=== PATIENT | male | born 1940 | race Caucasian/White ===

== ENCOUNTER → 2017-10-23 | Day surgery (SDC) | payer MEDICARE ==
[~2017-10-23] MED LIST: ALLOPURINOL100 MG PO; AMLODIPINE BESY10 MG PO; ATORVASTATIN CA10 MG PO; B COMPLEX WITH1 EAC1 PO; BELLADONNA/OPIUM 60 MG SUPP PR ONE; CEFTRIAXONE SOD 1 GM VIAL ONE; CO Q10100 MG PO; DEXAMETHASONE SOD PHOS INJ 4 MG/ML VIAL ONE; EPHEDRINE SULFATE INJ 50 MG/10 ML SYR ONE; FENOFIBRATE145 MG PO; FENTANYL CITRATE/PF 100MCG/2 ML INJ ONE; FUROSEMIDE40 MG PO; GEMFIBROZIL PO; GENTAMICIN 80MG/NS 100 ML 100 ML IV ONE; HUMALOG100 UNIT/1 SC; HUMULIN INJ; IOPAMIDOL 610MG/1ML 300 MG/ML VIAL IV ONE; LIDOCAINE HCL 2% LOCAL INJ 5 ML SDV VIAL INJ ONE; MIDAZOLAM HCL 2 MG/2 ML VIAL ONE; ONDANSETRON HCL INJ 2 MG/ML VIAL ONE; POTASSIUM CITR10 MEQ PO; PROPOFOL IV EMULSION 10 MG/ML 20 ML VIAL ONE; RAMIPRIL5 MG PO; SEVOFLURANE INHAL SOLN 250 ML PEN BTL ONE; VIT B12 PO; VIT D3 PO
[2017-10-23 08:43] LABS: BASOPHILS % 0.2 % (0.0-1.0); HEMATOCRIT 44.9 % (38.2-49.6); HEMOGLOBIN 15.5 g/dL (14.0-18.0); LYMPHOCYTES # (AUTO) 1.7 (1.0-3.2); LYMPHOCYTES % 21.5 % (18.0-39.1); MEAN CORPUSCULAR HEMOGLOBIN 31.3 pg (28-32); MEAN CORPUSCULAR HGB CONC 34.5 g/dL (31-35); MEAN CORPUSCULAR VOLUME 90.7 fL (81-99); MONOCYTES # (AUTO) 0.8 (0.2-0.8); MONOCYTES % 9.9 % (4.4-11.3); NEUTROPHILS # (AUTO) 5.5 (2.1-6.9); NEUTROPHILS % 67.8 % (38.7-80.0); PLATELET COUNT 128 x10e3/uL (140-360); RED BLOOD COUNT 4.95 x10e6/uL (4.3-5.7); RED CELL DISTRIBUTION WIDTH 14.9 % (11.7-14.4)
[2017-10-23 09:15] LABS: ALBUMIN 4.2 g/dL (3.5-5.0); ALBUMIN/GLOBULIN RATIO 1.3 (0.8-2.0); ANION GAP 14.5 mmol/L (8-16); CREATININE, SERUM 1.62 mg/dL (0.72-1.25); POTASSIUM 3.5 mmol/L (3.5-5.1)
--- NOTE | 2017-12-03 06:48 | Operative Report ---
DATE OF PROCEDURE: October 23, 2017 PREOPERATIVE DIAGNOSES 1. Left nephrolithiasis. 2. Left indwelling ureteral stent. POSTOPERATIVE DIAGNOSES 1. Left nephrolithiasis. 2. Left indwelling ureteral stent. OPERATIONS PERFORMED: Note, these are all staged procedures as part of multistage, multistep process of managing the patient's left nephrolithiasis. 1. Cystourethroscopy with complicated removal of left indwelling ureteral stent (separate procedure performed for the diagnosis of stent). 2. Left ureteroscopy with Holmium laser lithotripsy of upper and lower pole left renal stones (separate procedure performed for the diagnosis of stones). 3. Cystostomy with insertion of left indwelling ureteral stent (separate procedure performed to relieve the hydronephrosis). 4. Radiological services for supervision and interpretation of ureteroscopy. 5. Interpretation of retrograde ureteroscopy. 6. Supervision of fluoroscopy. No radiologist present. ANESTHESIA: General. COMPLICATIONS: None. CLINICAL SUMMARY: Kasi Conway is a 76-year-old man with extensive urolithiasis. He has undergone ESWL. Has a stent in place and has persistent stones. He is brought for the above procedures. He is aware of the risks of bleeding, infection, injury to adjacent structures, need for additional procedures, and he elected to proceed. OPERATIVE PROCEDURE IN DETAIL: Informed consent was verified. Kasi Conway was properly identified and taken to the operating room and placed on the cystoscopy table in the supine position. Anesthesia was uneventfully begun. The patient was then carefully and gently repositioned in the dorsal lithotomy position with all pressure points well-padded. His genitalia were prepared and draped in the usual sterile fashion. The 22.5-Khmer cystoscope sheath with the visual obturator in place was atraumatically inserted into the patient's urethra. It was guided down the unremarkable urethra through the prostate bed, which was significant for obstructive BPH and into the patient's bladder. We identified a stent emerging from the left ureteral orifice. A guidewire was then placed alongside the stent and guided to the level of the patient's kidney. The stent was then grasped, completely removed and discarded. A flexible ureteroscope was brought up over the guidewire and guided to the level of the patient's kidney. We identified a significant stone burden, both in the upper pole, as well as the lower pole of the kidney. We started performing Holmium laser lithotripsy, and there was no movement at all as far as fragmentation of the stones. We raised the energy level on the laser to the maximum of the 200 micron fiber can accommodate. Then we proceeded with treating all stone debris at a setting of 10 caballero. This resulted in rather excellent fragmentation of all stones that were visible. There was a significant collection of stones that now we have collected within the patient's kidney. The ureteroscope was withdrawn after leaving the guidewire. With cystoscopic fluoroscopic guidance, an indwelling ureteral stent was then placed. It was coiled in the patient's kidney, as well as the patient's bladder at the end of the case. Interpretation retrograde ureteropyelography. Contrast was instilled in a retrograde fashion via the ureteroscope. There was chronic appearing hydronephrosis and some caliceal blunting. The stent was in good position. It was coiled in the patient's kidney, as well as the patient's bladder and the end of the case. The patient's bladder was then drained. The cystoscope was withdrawn. A belladonna and opium suppository was placed revealing a 35 g prostate that is smooth, nonfluctuant and without any nodules. The patient was uneventfully reversed from anesthesia, and taken to the recovery room in stable condition. Explicit postoperative instructions were given. Will follow the patient up in the office. Job#: [id number] [place]
== END | disposition home or self-care (01) ==
LOC: OR 07:44
PROVIDERS: ATTEND Urology
DX: N20.0 Calculus of kidney (principal); Z46.6 Encounter for fitting and adjustment of urinary device; N40.1 Benign prostatic hyperplasia with lower urinary tract symptoms; N13.8 Other obstructive and reflux uropathy; N13.30 Unspecified hydronephrosis; I10 Essential (primary) hypertension; M10.9 Gout, unspecified; E11.9 Type 2 diabetes mellitus without complications
CPT/HCPCS: 36415; 52356; 74420; 80053; 82948; 84550; 85025; J0696; J1100; J1580; J2001; J2250; J2405; Q9967; C2625

== ENCOUNTER → 2018-01-15 | Day surgery (SDC) | payer MEDICARE ==
[2018-01-14 13:22] LABS: BASOPHILS % 0.1 % (0.0-1.0); HEMATOCRIT 42.4 % (38.2-49.6); HEMOGLOBIN 14.8 g/dL (14.0-18.0); LYMPHOCYTES # (AUTO) 1.6 (1.0-3.2); LYMPHOCYTES % 22.5 % (18.0-39.1); MEAN CORPUSCULAR HEMOGLOBIN 31.3 pg (28-32); MEAN CORPUSCULAR HGB CONC 34.9 g/dL (31-35); MEAN CORPUSCULAR VOLUME 89.6 fL (81-99); MONOCYTES # (AUTO) 0.6 (0.2-0.8); MONOCYTES % 8.5 % (4.4-11.3); NEUTROPHILS # (AUTO) 4.8 (2.1-6.9); NEUTROPHILS % 68.3 % (38.7-80.0); PLATELET COUNT 123 x10e3/uL (140-360); RED BLOOD COUNT 4.73 x10e6/uL (4.3-5.7); RED CELL DISTRIBUTION WIDTH 14.8 % (11.7-14.4)
[2018-01-14 13:34] LABS: ANION GAP 14.3 mmol/L (8-16); CALCIUM 9.6 mg/dL (8.4-10.2); CREATININE, SERUM 1.78 mg/dL (0.72-1.25); POTASSIUM 4.3 mmol/L (3.5-5.1)
[~2018-01-15] MED LIST changes: -DEXAMETHASONE SOD PHOS INJ 4 MG/ML VIAL ONE; -GENTAMICIN 80MG/NS 100 ML 100 ML IV ONE; +INSULIN NOVOLIN; +INSULIN REGULAR, HUMAN 100 UNIT/1 ML 3ML VIAL ONE; +IOPAMIDOL 300MG/ML 50ML INFUS..BTL IV ONE; -IOPAMIDOL 610MG/1ML 300 MG/ML VIAL IV ONE; +NOVOLIN N100 UNIT/1 SQ; +PHENYLEPHRINE HCL 1% 10 MG/ML VIAL ONE; +VITAMIN D1000 UNI1 PO
--- OUTSIDE RECORDS SUMMARY | 2018-01-15 08:36 | XMS REPORT | Clinical Summary ---
Author Author [facility] Address Unknown Phone Unavailable Care Team Providers Care Pipe Line Repairer Name Role Phone Emre Manzo MD PCP Allergies No Known Allergies Current Medications Prescription Sig. Disp. Refills Start End Date Status Date allopurinol (ZYLOPRIM) Take 100 mg by mouth 3 Active 100 MG tablet (three) times a day before meals. amLODIPine (NORVASC) 10 Take 10 mg by mouth Active mg tablet daily. atorvastatin (LIPITOR) 10 Take 10 mg by mouth Active MG tablet daily. fenofibrate (LOFIBRA) 160 Take 160 mg by mouth Active MG tablet daily. potassium chloride Take 20 mEq by mouth Active (KLOR-CON) 20 mEq packet daily. ramipril (ALTACE) 10 MG Take 10 mg by mouth Active capsule daily. furosemide (LASIX) 40 mg Take 40 mg by mouth 2 Active tablet (two) times a day. Active Problems No known active problems Family History Medical History Relation Name Comments Cancer Brother Diabetes Brother Diabetes Father Diabetes Sister Relation Name Status Comments Brother Father Sister Social History Tobacco Use Types Packs/Day Years Used Date Former Smoker Cigarettes Quit: 1959 Smokeless Tobacco: Former Quit: 1959 User Alcohol Use Drinks/Week oz/Week Comments No Sex Assigned at Date Recorded Not on file Last Filed Vital Signs Not on file Plan of Treatment Health Maintenance Due Date Last Done Comments ZOSTER VACCINE 1999 PNEUMOCOCCAL 2004 POLYSACCHARIDE VACCINE AGE 65 AND OVER PNEUMOCOCCAL-13 2004 INFLUENZA VACCINE 05/07/2018 Results Not on fileafter 01/14/2017 Insurance Payer Benefit Subscriber ID Type Phone Address Plan / Group [employer] C[employer] xxxxxxxxxxx PPO [employer] PPO [facility]
--- OUTSIDE RECORDS SUMMARY | 2018-01-15 08:36 | XMS REPORT ---
[facility] Address Unknown Phone Unavailable Care Team Providers Care Hospital Laboratory Technician Name Role Phone EL ERICKSON Unavailable Unavailable Problems This patient has no known problems. Allergies, Adverse Reactions, Alerts This patient has no known allergies or adverse reactions. Medications This patient has no known medications. Results Test Description Test Time Test Comments Text Results Atomic Results Result Comments ABDOMEN-1VIEW (KUB) [place] [address] Patient Name: BAUTISTA BOSE MR #: [id number] : 1940 Age/Sex: 76/M Req #: [id number] [facility] Physician: Ordered by: EL ERICKSON MD Report #: [id number] Location: OR Room/Bed: Procedure: [id number] DX/ABDOMEN-1VIEW (KUB) Exam Date: 08/28/17 Exam Time : 0810 REPORT STATUS: Signed PROCEDURE: X-RAY ABDOMEN - KUB COMPARISON: Abdominal radiograph 05/03/2017. INDICATIONS: PRE OPERATIVE CHEST X-RAY FOR STONES,ESWL FINDINGS: Account for differences in technique, no appreciable interval change in the appearance of a 3 cm partial staghorn calculus of the left upper pole collecting system , with adjacent 5-6 mm and 11 mm calculi inferolaterally. Peripherally calcified gallstone projects over the right upper quadrant, also unchanged. Multiple pelvic phleboliths. Unchanged appearance of left iliac arterial endograft with adjacent Amplatzer vascular occlusion device. Regional skeletal factors are intact. Multilevel degenerative disc changes. CONCLUSION: Stable left nephrolithiasis relative to 05/03/2017. Dictated by: Eileen Duong M.D. on 08/28/2017 at 8:51 Electronically approved by: Eileen Duong M.D. on 08/28/2017 at 8:51 Dictated By: EILEEN DUONG MD 0 Transcribed By: LUCIANO on 08/28/17850 COPY TO: EL ERICKSON MD CHEST 2 VIEWS [place] [address] Patient Name: BAUTISTA BOSE MR #: [id number] : 1940 Age/Sex: 76/M Req #: [id number] [facility] Physician: Ordered by: EL ERICKSON MD Report #: [id number] Location: OR Room/Bed: Procedure: [id number] DX/ CHEST 2 VIEWS Exam Date: 08/27/17 Exam Time: 1025 REPORT STATUS: Signed PROCEDURE: CHEST 2 VIEWS TECHNIQUE: PA lateral chest totaling 2 radiographs INDICATION: Preoperative evaluation. COMPARISON: None. FINDINGS: Right hemidiaphragm elevation. Lungs are otherwise clear. No pleural effusions. Normal heart size and mediastinal contour. Intact skeleton. Left humerus arthroplasty. CONCLUSION: No acute abnormality. Dictated by: Gemma Elliott M.D. on at 11:20 Electronically approved by: Gemma Elliott M.D. on 08/27/2017 at 11:20 Dictated By: GEMMA ELLIOTT MD 19 Transcribed By: LUCIANO on 08/27/171119 COPY TO: EL ERICKSON MD
--- OUTSIDE RECORDS SUMMARY | 2018-01-15 08:36 | XMS REPORT | Summary of Care ---
Author Author IRVING Desouza, TYREL Anaya Unknown Address Unknown Phone Unavailable Care Team Providers Care Mat Cutter Name Role Phone JOSE MAHARAJ M.D. Unavailable Unavailable GERSON COPELAND, GEMMA GUTIERREZ Unavailable Unavailable SIL COPELAND, MANUEL Unavailable Unavailable Unavailable Unavailable Functional Status Name Dates Details Functional status health issues are not documented Status: Name Dates Details Cognitive status health issues are not documented Status: Problems Name Dates Details History of endovascular stent graft for abdominal aortic aneurysm (V43.4, Z95.828) Status: Active Medications Name Dates Details Medications not documented Allergies and Adverse Reactions Name Dates Details Allergy history not documented Status: Procedures Procedure Dates Details Procedures not documented Immunization Name Dates Details Immunizations not documented Social History Name Dates Details - Status: Name Dates Details Former smoker Vital Signs Date Test Result Details No Known Vitals to report Results Date Description Value Details Results not documented Plan of Care Name Dates Details Planned Observations Planned Goals not documented Instructions Name Dates Details Instructions not documented Encounters Appointment; DR CAROL ANN ESPINOZA Encounter Diagnosis: Problem not documented On: 25-Dec-2017 6:00 Appointment; JOSE MAHARAJ M.D. Encounter Diagnosis: Problem not documented On: 30-Dec-2017 9:45
--- NOTE | 2018-01-15 11:10 | Diagnostic Imaging Report ---
PROCEDURE:X-RAY ABDOMEN - KUB COMPARISON:KUB 05/03/2017 INDICATIONS:PRE-OP LEFT LITHOTRIPSY FINDINGS: Left ureteral stent in place. The proximal tip overlying the renal silhouette is unlooped. Calcifications overlie the left renal silhouette measuring up to 1.4 cm on the inferior pole. A new calcification overlying the left pelvis adjacent to the ureteral stent measures 0.4 x 1 cm (TV x SI) just proximal to the distal loop. A round 6.7 cm opacity projects adjacent to the inferior pole of the right kidney. Stable 2.4 cm calcification overlying the right upper quadrant likely representing a gallstone. Vascular stent projects over the left pelvis. Stable phleboliths in the pelvis. There is a non-obstructed bowel-gas pattern. There are no acute osseous abnormalities. CONCLUSION: 1. Calcifications project over the left renal silhouette measuring up to 1.4 cm. 2. New 0.4 cm wide calcification projects near the expected left ureterovesicular junction. Ureteral stent in place. 3. A 6.7 cm rounded opacity projects adjacent to the inferior pole of the right renal silhouette which could represent a cyst but is indeterminate. This can further evaluation with renal ultrasound. Dictated by: Richard Plascencia M.D. on 01/15/2018 at 11:11 Electronically approved by: Richard Plascencia M.D. on 01/15/2018 at 11:11
--- NOTE | 2018-02-10 17:32 | Operative Report ---
DATE OF PROCEDURE: January 15, 2018 PREOPERATIVE DIAGNOSES: 1. Left nephrolithiasis. 2. Left ureterolithiasis. 3. Foreign body (left indwelling ureteral stent). 4. Left hydronephrosis. OPERATIONS PERFORMED: Note these were all staged procedures as part of a multistage, multistep process in managing the patient's urolithiasis. 1. Cystourethroscopy with complicated removal of left indwelling ureteral stent (separate procedure performed with separate scope for the diagnosis of the stent). 2. Left semirigid ureteroscopy with stone manipulation and extraction (separate procedure performed for the ureterolithiasis done with a semirigid ureteroscope). 3. Extensive repeated and complicated left ureteropyeloscopy with stone manipulation and extraction (separate complicated procedure performed multiple times for the numerous and innumerable stones located within the left kidney done with a separate flexible ureteroscope). 4. Radiological services for supervision and interpretation of ureteroscopy. 5. Interpretation of retrograde ureteropyelography. 6. Supervision of fluoroscopy, no radiologist present. 7. Cystourethroscopy with insertion of left indwelling ureteral stents (separate procedure performed to relieve hydronephrosis). ANESTHESIA: General. COMPLICATIONS: None. CLINICAL SUMMARY: Kasi Conway is a 77-year-old man with extensive and hard and large urolithiasis. The patient has undergone multiple bilateral procedures. He is brought to the operating room in attempts to render him stone-free. He is aware of the risks of bleeding, infection, injury to adjacent structures, need for additional procedures, and elected to proceed. OPERATIVE PROCEDURE IN DETAIL: Informed consent was verified. Kasi Conway was properly identified, taken to the operating room and placed on the cystoscopy table in supine position. Anesthesia was uneventfully begun. The patient was then carefully and gently repositioned in the dorsal lithotomy position with all pressure points well padded. His genitalia were prepared and draped in usual sterile fashion. The 22.5-Mosotho cystoscope sheath with the visual obturator in place was atraumatically inserted into patient's urethra. It was guided down the unremarkable distal urethra, through the normal sphincteric region, through the prostate bed, which was significant for visually obstructing BPH. We entered the patient's bladder where panendoscopy revealed no suspicious mucosal lesions, no tumors, no stones, and no diverticula. A stent was noted to be emerging from the left ureteral orifice and it was not encrusted. A guidewire was then placed alongside the stent and guided to level of the patient's kidney. The stent was then grasped, completely removed, and discarded. Semirigid ureteroscope was then placed alongside the stent and guided into the patient's left ureter. We identified multiple stones. Several passes were made with a nitinol tipless basket to extract all visible stones from within the distal ureter. Secondary guidewire was placed. A sheath was then placed over the secondary guidewire and guided to the level of the proximal ureter. Innumerable flexible ureteropyeloscopies were then performed flexible ureteroscope and we extracted numerous stone fragments during these procedures. No significantly sized stone fragments were left behind. The patient was then believed to be rendered essentially stone-free except for significant amount of sand, which should be easily passable. With cystoscopic and fluoroscopic guidance, a left-sided indwelling ureteral stent was then placed. It was coiled in patient's kidney as well as in patient's bladder. The retaining suture was cut short. Interpretation of retrograde ureteropyelography: Contrast was instilled in retrograde fashion bilaterally. There was chronic-appearing fullness of the left collecting system. Filling defects that were present initially were no longer distinguishable at the end of the ureteroscopy. The stent was in good position, coiled in patient's kidney as well as in patient's bladder at the end of the case. Plans will be to return the patient to the operating room to remove his stent, perform ureteroscopy, and hopefully render the patient stent-free and stone-free. Job#: [id number]
== END | disposition home or self-care (01) ==
LOC: OR 08:34
PROVIDERS: ATTEND Urology
DX: N20.0 Calculus of kidney (principal); N20.1 Calculus of ureter; Z46.6 Encounter for fitting and adjustment of urinary device; N13.30 Unspecified hydronephrosis; N40.1 Benign prostatic hyperplasia with lower urinary tract symptoms; N13.8 Other obstructive and reflux uropathy; I71.4 Abdominal aortic aneurysm, without rupture; E11.22 Type 2 diabetes mellitus with diabetic chronic kidney disease; I12.9 Hypertensive chronic kidney disease with stage 1 through stage 4 chronic kidney disease, or unspecified chronic kidney disease; N18.9 Chronic kidney disease, unspecified; Z01.810 Encounter for preprocedural cardiovascular examination; Z01.812 Encounter for preprocedural laboratory examination; Z79.4 Long term (current) use of insulin; Z84.1 Family history of disorders of kidney and ureter
CPT/HCPCS: 36415 ×2; 52330; 52332; 74018; 74420; 80048; 82948; 85025; 88300; 93005; C1766; C2617; J0696; J2001; J2250; J2370; J2405; Q9967

== ENCOUNTER → 2018-03-05 | Day surgery (SDC) | payer MEDICARE ==
[2018-03-04 09:40] LABS: BASOPHILS % 0.3 % (0.0-1.0); HEMATOCRIT 48.8 % (38.2-49.6); HEMOGLOBIN 16.9 g/dL (14.0-18.0); LYMPHOCYTES # (AUTO) 1.5 (1.0-3.2); LYMPHOCYTES % 11.9 % (18.0-39.1); MEAN CORPUSCULAR HEMOGLOBIN 30.8 pg (28-32); MEAN CORPUSCULAR HGB CONC 34.6 g/dL (31-35); MEAN CORPUSCULAR VOLUME 89.1 fL (81-99); MONOCYTES % 7.9 % (4.4-11.3); NEUTROPHILS # (AUTO) 9.7 (2.1-6.9); NEUTROPHILS % 79.1 % (38.7-80.0); PLATELET COUNT 132 x10e3/uL (140-360); RED BLOOD COUNT 5.48 x10e6/uL (4.3-5.7); RED CELL DISTRIBUTION WIDTH 14.5 % (11.7-14.4)
[2018-03-04 09:58] LABS: ANION GAP 14.6 mmol/L (8-16); CALCIUM 9.6 mg/dL (8.4-10.2); CREATININE, SERUM 1.84 mg/dL (0.72-1.25); POTASSIUM 4.6 mmol/L (3.5-5.1)
[~2018-03-05] MED LIST changes: +DEXAMETHASONE SOD PHOS INJ 4 MG/ML VIAL ONE; -EPHEDRINE SULFATE INJ 50 MG/10 ML SYR ONE; -INSULIN REGULAR, HUMAN 100 UNIT/1 ML 3ML VIAL ONE; -IOPAMIDOL 300MG/ML 50ML INFUS..BTL IV ONE; +IOPAMIDOL 610MG/1ML 300 MG/ML VIAL IV ONE; -MIDAZOLAM HCL 2 MG/2 ML VIAL ONE; +NOVOLOG MI100 UNIT/1 SC; -PHENYLEPHRINE HCL 1% 10 MG/ML VIAL ONE
--- OUTSIDE RECORDS SUMMARY | 2018-03-05 08:32 | XMS REPORT | Clinical Summary ---
Author Author [facility] Address Unknown Phone Unavailable Care Team Providers Care Assembler Installer General Name Role Phone Emre Manzo MD PCP Allergies Active Allergy Reactions Severity Noted Date Comments Chlorhexidine Gluconate 01/21/2018 Current Medications Prescription Sig. Disp. Refills Start End Date Status Date allopurinol (ZYLOPRIM) Take 100 mg by mouth 2 Active 100 MG tablet (two) times a day. amLODIPine (NORVASC) 10 Take 10 mg by mouth every Active mg tablet morning. ramipril (ALTACE) 10 MG Take 10 mg by mouth every Active capsule morning. furosemide (LASIX) 40 mg Take 40 mg by mouth 2 Active tablet (two) times a day. potassium citrate Take 15 mEq by mouth 2 Active (UROCIT-K) 15 mEq tablet (two) times a day with extended release meals. gemfibrozil (LOPID) 600 Take 600 mg by mouth 2 Active MG tablet (two) times a day before meals. ergocalciferol (VITAMIN Take 50,000 Units by Active D2) 50,000 unit capsule mouth once a week. insulin 70/30 NPH and Inject 44 Units under the Active regular human (HumuLIN skin 2 (two) times a day. 70/30) 100 unit/mL (70-30) injection atorvastatin (LIPITOR) 10 Take 10 mg by mouth 01/22/20 Discontin MG tablet daily. 18 ued fenofibrate (LOFIBRA) 160 Take 160 mg by mouth 01/22/20 Discontin MG tablet daily. 18 ued potassium chloride Take 20 mEq by mouth 01/22/20 Discontin (KLOR-CON) 20 mEq packet daily. 18 ued atorvastatin (LIPITOR) 10 Take 1 tablet (10 mg 30 tablet 0 01/25/20 02/24/20 MG tablet total) by mouth nightly 18 18 for 30 days. pantoprazole (PROTONIX) Take 1 tablet (40 mg 30 tablet 0 01/25/20 40 MG EC tablet total) by mouth daily for 18 18 30 days. Active Problems Problem Noted Date Small bowel obstruction 01/21/2018 Type 2 diabetes mellitus 01/21/2018 Hypertension 01/21/2018 Hypercholesteremia 01/21/2018 Chronic kidney disease 01/21/2018 Overview: stones COPD (chronic obstructive pulmonary disease) 01/21/2018 Encounters Date Type Specialty Care Team Description 01/24/2018 Procedure Pass General Surgery 01/23/2018 Anesthesia General Surgery Matt, Ricardo Event 01/21/2018 [facility] General Surgery Jason Reina DO Small bowel obstruction - Encounter Nick Fierro DO (Primary Dx) 01/24/2018 after 03/04/2017 Family History Medical History Relation Name Comments Cancer Brother Diabetes Brother Diabetes Father Diabetes Sister Relation Name Status Comments Brother Father Sister Social History Tobacco Use Types Packs/Day Years Used Date Former Smoker Cigarettes Quit: 1959 Smokeless Tobacco: Former Quit: 1959 User Alcohol Use Drinks/Week oz/Week Comments No Sex Assigned at Date Recorded Not on file Last Filed Vital Signs Vital Sign Reading Time Taken Blood Pressure 128/67 01/24/2018 11:32 AM CDT Pulse 69 01/24/2018 11:32 AM CDT Temperature 36.7 C (98 F) 01/24/2018 11:32 AM CDT Respiratory Rate 20 01/24/2018 11:32 AM CDT Oxygen Saturation 95% 01/24/2018 11:32 AM CDT Inhaled Oxygen - - Concentration Weight 95.3 kg (210 lb) 01/21/2018 1:33 PM CDT Height 170.2 cm (5' 7") 01/21/2018 1:33 PM CDT Body Mass Index 32.89 01/21/2018 1:33 PM CDT Plan of Treatment Health Maintenance Due Date Last Done Comments DIABETIC FOOT EXAM 1949 DIABETIC RETINAL EYE EXAM 1950 URINE MICROALBUMIN 1949 SHINGRIX VACCINE (#1) 1989 ZOSTER VACCINE 1999 PNEUMOCOCCAL 2004 POLYSACCHARIDE VACCINE AGE 65 AND OVER PNEUMOCOCCAL-13 2004 INFLUENZA VACCINE 05/07/2018 Results * POC glucose (01/24/2018 11:44 AM) Only the most recent of 13 results within the time period is included. Component Value Ref Range POC glucose 258 (H) 65 - 99 mg/dL Comment: Meter ID: [id number] Product Ambassador: Sherri Stefania Specimen Performing Laboratory [facility] DEPARTMENT OF PATHOLOGY AND GENOMIC MEDICINE [address] [place] [address] [place] [address] * Estimated GFR (01/24/2018 9:20 AM) Only the most recent of 3 results within the time period is included. Component Value Ref Range GFR Non Af Amer 53 (A) mL/min/1.73 m2 GFR Af Amer 65 mL/min/1.73 m2 Comment: Chronic kidney disease: <60 mL/min/1.73m2 Kidney failure: <15 mL/min/1.73m2 The estimated GFR is calculated from the IDMS-traceable Modification of Diet in Renal Disease Equation. The accuracy of the calculation is poor when the creatinine is normal. Calculated values >90 mL/min/1.73m2 are not reported. This equation has not been validated in children (<18 years), women, the elderly (>70 years), or ethnic groups other than Caucasians and Americans. Specimen Performing Laboratory Plasma specimen [facility] DEPARTMENT OF PATHOLOGY AND GENOMIC MEDICINE [address] [place] [address] [place] [address] * CBC with platelet and differential (01/24/2018 9:20 AM) Only the most recent of 3 results within the time period is included. Component Value Ref Range WBC 6.86 4.50 - 11.00 k/uL RBC 4.26 (L) 4.40 - 6.00 m/uL HGB 13.1 (L) 14.0 - 18.0 g/dL HCT 39.6 (L) 41.0 - 51.0 % MCV 93.0 82.0 - 100.0 fL MCH 30.8 27.0 - 34.0 pg MCHC 33.1 31.0 - 37.0 g/dL RDW - SD 53.8 37.0 - 55.0 fL MPV 10.8 8.8 - 13.2 fL Platelet count 128 (L) 150 - 400 k/uL Nucleated RBC 0.00 /100 WBC Neutrophils 81.5 (H) 39.0 - 69.0 % Lymphocytes 11.8 (L) 25.0 - 45.0 % Monocytes 6.0 0.0 - 10.0 % Eosinophils 0.0 0.0 - 5.0 % Basophils 0.3 0.0 - 1.0 % Specimen Performing Laboratory Blood [facility] DEPARTMENT OF PATHOLOGY AND [facility] [address] [place] [address] * Basic metabolic panel (01/24/2018 9:20 AM) Only the most recent of 3 results within the time period is included. Component Value Ref Range Sodium 140 135 - 148 mEq/L Potassium 4.0 3.5 - 5.0 mEq/L Chloride 97 (L) 98 - 112 mEq/L CO2 31 24 - 31 mEq/L Anion gap 12 7 - 15 mEq/L Comment: Starting from January , anion gap calculation no longer incorporates potassium. Please note the change. BUN 38 (H) 8 - 23 mg/dL Creatinine 1.3 (H) 0.7 - 1.2 mg/dL Glucose 290 (H) 65 - 99 mg/dL Calcium 8.7 (L) 8.8 - 10.2 mg/dL Specimen Performing Laboratory Plasma specimen [facility] DEPARTMENT OF PATHOLOGY AND [facility] [address] [place] [address] * XR Abdomen Acute Inc Chest (01/23/2018 9:01 AM) Specimen Performing Laboratory [address] [address] Narrative EXAMINATION:XR ABDOMEN ACUTE INC CHEST CLINICAL HISTORY:obstruction COMPARISON:None. FINDINGS: A nasogastric tube is present its tip projects in the distal stomach. The small bowel demonstrates persistent dilation although there is now opaque material present within the colon indicating the obstruction is not complete. There is atelectasis at the right lung base with elevation of the right hemidiaphragm noted as well. No extraluminal collections are noted. A left- sided double pigtail ureteral stent and vascular stent on the left also are noted and are stable since previous. IMPRESSION: 1. Opaque material is now present within the colon indicating that the small bowel obstruction is partial and not complete. 2. Nasogastric tube in place. 3. Moderate stool in the colon. 4. Atelectasis at the right lung base PA upright chest: The heart size is enlarged. A nasogastric tube is noted. Its tip projects in the stomach. There is chronic elevation of the right hemidiaphragm with atelectasis at the right lung base. IMPRESSION: 1. Cardiomegaly. 2. Atelectasis at the right lung base with elevation of the right hemidiaphragm [id number] Procedure Note Interface, Radiology Results Incoming - 01/23/2018 9:15 AM CDT EXAMINATION: XR ABDOMEN ACUTE INC CHEST CLINICAL HISTORY: obstruction COMPARISON: None. FINDINGS: A nasogastric tube is present its tip projects in the distal stomach. The small bowel demonstrates persistent dilation although there is now opaque material present within the colon indicating the obstruction is not complete. There is atelectasis at the right lung base with elevation of the right hemidiaphragm noted as well. No extraluminal collections are noted. A left- sided double pigtail ureteral stent and vascular stent on the left also are noted and are stable since previous. IMPRESSION: 1. Opaque material is now present within the colon indicating that the small bowel obstruction is partial and not complete. 2. Nasogastric tube in place. 3. Moderate stool in the colon. 4. Atelectasis at the right lung base PA upright chest: The heart size is enlarged. A nasogastric tube is noted. Its tip projects in the stomach. There is chronic elevation of the right hemidiaphragm with atelectasis at the right lung base. IMPRESSION: 1. Cardiomegaly. 2. Atelectasis at the right lung base with elevation of the right hemidiaphragm [id number] * XR Abdomen 1 Vw (01/22/2018 5:41 PM) Specimen Performing Laboratory [facility] [address] [place] [address] Narrative EXAMINATION:XR ABDOMEN 1 VW CLINICAL HISTORY:ABDOMINAL PAIN, f u sbo 10 hrs COMPARISON:None. FINDINGS: The earlier film demonstrates persistent distention of small bowel loops which are opacified. No contrast material is noted within the colon. A left ureteral stent is in place. A left-sided iliac stent is also in place. Nasogastric tube curls in the distal esophagus and is not currently within the stomach IMPRESSION: Changes consistent with at least partial mechanical small bowel structure in. Additional delayed films will be obtained. The nurse Ronna was notified as to the findings and recommendation to advance the tube into the stomach January 22, 2018 5:53 PM. She expressed understanding of the report [id number] Procedure Note Interface, Radiology Results Incoming - 01/22/2018 5:56 PM CDT EXAMINATION: XR ABDOMEN 1 VW CLINICAL HISTORY: ABDOMINAL PAIN, f u sbo 10 hrs COMPARISON: None. FINDINGS: The earlier film demonstrates persistent distention of small bowel loops which are opacified. No contrast material is noted within the colon. A left ureteral stent is in place. A left-sided iliac stent is also in place. Nasogastric tube curls in the distal esophagus and is not currently within the stomach IMPRESSION: Changes consistent with at least partial mechanical small bowel structure in. Additional delayed films will be obtained. The nurse Ronna was notified as to the findings and recommendation to advance the tube into the stomach January 22, 2018 5:53 PM. She expressed understanding of the report [id number] * FL Small Bowel Series (01/22/2018 4:48 PM) Specimen Performing Laboratory [address] [address] Narrative EXAMINATION:FL SMALL BOWEL CLINICAL HISTORY:Bowel obstruction COMPARISON:None. TECHNIQUE: SMALL BOWEL SERIES was performed with Gastrografin. FINDINGS: Antichecking Iron Worker view of the abdomen demonstrates considerable air distention of small bowel loops throughout the abdomen into the pelvis. Small amounts of air in scattered fecal material throughout the colon. Left-sided double-J ureteral stent in place. Aorto left iliac artery stent noted. NG tube at the level of the gastric cardia Gastrografin was placed through the patient's NG tube. Serial examination performed out to 6 hours. High-grade small bowel obstruction evident with contrast extending to the right lower pelvis. No contrast identified in to the colon. IMPRESSION: Changes of high-grade small bowel obstruction at 6 hours. Distention of small bowel into the right lower quadrant pelvis. No contrast in the colon. Findings were discussed with Jacob Teixeira at 01/22/2018 5:06 PM who verbalized understanding. Patient was to be placed back on NG suction. [id number] Procedure Note Interface, Radiology Results Incoming - 01/22/2018 5:13 PM CDT EXAMINATION: FL SMALL BOWEL CLINICAL HISTORY: Bowel obstruction COMPARISON: None. TECHNIQUE: SMALL BOWEL SERIES was performed with Gastrografin. FINDINGS: Antichecking Iron Worker view of the abdomen demonstrates considerable air distention of small bowel loops throughout the abdomen into the pelvis. Small amounts of air in scattered fecal material throughout the colon. Left-sided double-J ureteral stent in place. Aorto left iliac artery stent noted. NG tube at the level of the gastric cardia Gastrografin was placed through the patient's NG tube. Serial examination performed out to 6 hours. High-grade small bowel obstruction evident with contrast extending to the right lower pelvis. No contrast identified in to the colon. IMPRESSION: Changes of high-grade small bowel obstruction at 6 hours. Distention of small bowel into the right lower quadrant pelvis. No contrast in the colon. Findings were discussed with Jacob Teixeira at 01/22/2018 5:06 PM who verbalized understanding. Patient was to be placed back on NG suction. [id number] * Hemoglobin A1c (01/21/2018 6:30 PM) Component Value Ref Range Hemoglobin A1C 6.7 (H) 4.0 - 6.0 % Comment: Less than 6% - Goal of therapy for Type II Diabetes Less than 7%- Goal of therapy for Type I Diabetes Less than 8%- Acceptable control for Type I or Type II Diabetes Greater than 8%- Unacceptable control; action indicated. (A [id number]) Specimen Performing Laboratory Blood [facility] DEPARTMENT OF PATHOLOGY AND GENOMIC MEDICINE [address] [place] [address] * Lipid panel (01/21/2018 6:30 PM) Component Value Ref Range Cholesterol 163 <200 mg/dL Triglycerides 161 (H) <150 mg/dL HDL cholesterol 38 (L) >40 mg/dL LDL cholesterol 107 (H)Comment: Result obtained by direct LDL <100 mg/dL measurement Lipid panel SeeBelow interpretation Comment: Total Cholesterol (mg/dL) <200 Desirable 200-239 Borderline-high >=240 High Triglycerides (mg/dL) <150 Normal 150-199 Borderline-high 200-499 High >=500 Very high HDL Cholesterol (mg/dL) <40 Low (male) <40 Low (female) LDL Cholesterol (mg/dL) <100 Optimal 100-129 Near or above optimal 130-159 Borderline-high 160-189 High >=190 Very high Risk Catergories that modify LDL goals. Risk Catergories LDL goal (mg/dL) CHD and CHD risk equivalent <100 (10-year risk >20%) Multiple (2+) risk factors <130 (10-year risk=<20%) 0-1 risk factors <160 (<10-year risk) Defining levels of lipids in metabolic syndrome Triglycerides >=150 mg/dL HDL Cholesterol Men <40 mg/dL Women <40 mg/dL Non-HDL cholesterol is a second target for therapy in persons with high triglycerides (>=200 mg/dL) Specimen Performing Laboratory Plasma specimen [facility] DEPARTMENT OF PATHOLOGY AND GENOMIC MEDICINE [address] [place] [address] * CT Abdomen Pelvis Wo Contrast (01/21/2018 3:13 PM) Specimen Performing Laboratory [facility] [address] [place] [address] Narrative EXAMINATION:CT ABDOMEN PELVIS WO CONTRAST CLINICAL HISTORY:77 years Male abdominal distensionvomiting TECHNIQUE:Multiple axial images of the abdomen and pelvis were obtained without intravenous administration of iodinated contrast. Sagittal and coronal computerized reformatted images were also obtained. The lack of intravenous contrast reduces the sensitivity of detecting solid organ disease. CT imaging was performed with iterative reconstruction techniques and/or automated exposure control to reduce radiation dose. COMPARISON:None. Findings: There is linear scarring or atelectasis at the right lung base with milder changes on the left. The liver contains an area of low attenuation in the superior right lobe just beneath the diaphragm probably related to a tiny cyst measuring 9 mm this area was not included on the prior scan from 2005. The liver otherwise appears unremarkable. The spleen contains a cystic lesion present previously measuring 4.9 cm. An additional lesion more medially has developed since previous measuring approximately 3.2 cm in diameter. The larger lesion has associated adjacent calcification. There are multiple cysts associated with the kidneys although these are not well characterized no worrisome features are identified. The largest on the left measures 5.4 cm. The largest on the right 4.6 cm a left sided ureteral stent is in place with no hydronephrosis. The distal end of the stent curls in the bladder with some thickening of the bladder base and prostatic enlargement indenting the bladder. There are small bilateral inguinal hernias There is diffuse are not excluded although study was performed without contrast. Small lymph nodes are also considerations. These are in the area of the stomach and distal esophagus. There is distention of small bowel loops diffusely with equalization of small bowel contents which suggests small bowel obstruction. There appears to be a transition zone in the right lower quadrant with some kinking of adjacent bowel suggestion of possibility of an adhesion in this area although this is not definitive. More distally the small bowel is normal caliber the colon appears normal in caliber to limits of visualization. There is a stent within the left common iliac and external iliac arteries. No inflammatory changes are identified involving bowel. IMPRESSION: 1. There are changes consistent with small bowel obstruction with a transition zone in the right lower quadrant in the area of the distal ileum and normal- appearing colon and distal small bowel beyond the transition zone. 2. Bilateral diffuse renal cysts varying sizes not all of which are characterized but none is especially worrisome. A left ureteral stent is present with no evidence of hydronephrosis 3. Splenomegaly with splenic cysts the largest of which is unchanged from previous measuring approximately 4.9 cm. 4. Possible gastric varices although this is not definitive [id number] Procedure Note Hm Interface, Radiology Results Incoming - 01/21/2018 3:39 PM CDT EXAMINATION: CT ABDOMEN PELVIS WO CONTRAST CLINICAL HISTORY:77 years Male abdominal distension vomiting TECHNIQUE: Multiple axial images of the abdomen and pelvis were obtained without intravenous administration of iodinated contrast. Sagittal and coronal computerized reformatted images were also obtained. The lack of intravenous contrast reduces the sensitivity of detecting solid organ disease. CT imaging was performed with iterative reconstruction techniques and/or automated exposure control to reduce radiation dose. COMPARISON: None. Findings: There is linear scarring or atelectasis at the right lung base with milder changes on the left. The liver contains an area of low attenuation in the superior right lobe just beneath the diaphragm probably related to a tiny cyst measuring 9 mm this area was not included on the prior scan from 2005. The liver otherwise appears unremarkable. The spleen contains a cystic lesion present previously measuring 4.9 cm. An additional lesion more medially has developed since previous measuring approximately 3.2 cm in diameter. The larger lesion has associated adjacent calcification. There are multiple cysts associated with the kidneys although these are not well characterized no worrisome features are identified. The largest on the left measures 5.4 cm. The largest on the right 4.6 cm a left sided ureteral stent is in place with no hydronephrosis. The distal end of the stent curls in the bladder with some thickening of the bladder base and prostatic enlargement indenting the bladder. There are small bilateral inguinal hernias There is diffuse are not excluded although study was performed without contrast. Small lymph nodes are also considerations. These are in the area of the stomach and distal esophagus. There is distention of small bowel loops diffusely with equalization of small bowel contents which suggests small bowel obstruction. There appears to be a transition zone in the right lower quadrant with some kinking of adjacent bowel suggestion of possibility of an adhesion in this area although this is not definitive. More distally the small bowel is normal caliber the colon appears normal in caliber to limits of visualization. There is a stent within the left common iliac and external iliac arteries. No inflammatory changes are identified involving bowel. IMPRESSION: 1. There are changes consistent with small bowel obstruction with a transition zone in the right lower quadrant in the area of the distal ileum and normal- appearing colon and distal small bowel beyond the transition zone. 2. Bilateral diffuse renal cysts varying sizes not all of which are characterized but none is especially worrisome. A left ureteral stent is present with no evidence of hydronephrosis 3. Splenomegaly with splenic cysts the largest of which is unchanged from previous measuring approximately 4.9 cm. 4. Possible gastric varices although this is not definitive [id number] * Type and screen (01/21/2018 2:28 PM) Component Value Ref Range ABO grouping O Rh type POS Antibody screen NEG Specimen Performing Laboratory Blood [facility] DEPARTMENT OF PATHOLOGY AND GENOMIC MEDICINE [address] [place] [address] * ECG 12 lead (01/21/2018 1:41 PM) Component Value Ref Range Ventricular rate 104 Atrial rate 104 MO interval 168 QRSD interval 86 QT interval 370 QTC interval 486 P axis 1 55 QRS axis 1 -23 T wave axis 46 EKG impression Sinus tachycardia with Possible premature atrial complexes with aberrant conduction-Cannot rule out Anterior infarct (cited on or before 13-JUN-2012)-Abnormal ECG-In automated comparison with ECG of 13-JUN-2012 16:59,-aberrant conduction is now present-Questionable change in initial forces of Anteroseptal leads- Specimen Performing Laboratory [facility] [address] [place] [address] * ECG ED Preliminary Interpretation - NOT AN ORDER (01/21/2018 1:35 PM) Narrative Jason Reina DO 01/21/20189:12 PM ECG ED Preliminary Interpretation - Not an Order Performed by: JASON REINA Authorized by: JASON REINA ECG reviewed by ED Physician in the absence of a custom marine canvas fabricator: yes Interpretation: Interpretation: abnormal Rate: ECG rate:104 ECG rate assessment: tachycardic Rhythm: Rhythm: sinus tachycardia Ectopy: Ectopy: PVCs QRS: QRS axis:Normal QRS intervals:Normal Conduction: Conduction: normal ST segments: ST segments:Normal T waves: T waves: normal after 03/04/2017 Insurance Payer Benefit Subscriber ID Type Phone Address Plan / Group [employer] xxxxxxxxxxx PPO [facility] [id number] [place] [address]
--- NOTE | 2018-03-05 10:28 | Diagnostic Imaging Report ---
PROCEDURE:X-RAY ABDOMEN - KUB COMPARISON:None. INDICATIONS:PRE-OPERATIVE KUB FOR RENAL STONES FINDINGS: Left internal ureteral stent is again noted. Previously described 1 cm calculus along the distal margin of the stent is no longer visualized. Cluster of small calcifications projects over the lower pole of the left kidney the largest measuring 5 mm. Multiple mildly dilated loops of small bowel are noted, likely reflective of ileus in the setting of gas throughout the large bowel and rectum. Probable right upper quadrant gallstone is unchanged. Changes related to left common and external iliac endograft placement with an Amplatzer vascular plug within the proximal left internal iliac artery. Skeletal structures are intact. Multilevel degenerative disc changes of the lumbar spine. CONCLUSION: Left internal ureteral stent is again noted, with calculi along the distal aspect of the stent no longer visualized. Left lower pole renal calculi measuring up to 6 mm. Dictated by: Lenny Moore M.D. on 03/05/2018 at 10:30 Electronically approved by: Lenny Moore M.D. on 03/05/2018 at 10:30
--- NOTE | 2018-04-21 04:25 | Operative Report ---
DATE OF PROCEDURE: March 05, 2018 PREOPERATIVE DIAGNOSES 1. Left nephrolithiasis. 2. Foreign body (left indwelling ureteral stent). POSTOPERATIVE DIAGNOSES 1. Left nephrolithiasis. 2. Foreign body (left indwelling ureteral stent). OPERATIONS PERFORMED: Note these are all staged procedures as part of multistage, multistep process of managing the patient's urolithiasis. 1. Cystourethroscopy with complicated removal of left indwelling ureteral stent (separate procedure performed for the diagnosis of stent done with separate scope). 2. Left ureteroscopy performed numerous times with extraction of numerous kidney stone fragments (separate procedure performed for the numerous kidney stone fragments). 3. Interpretation of retrograde ureteropyelography. 4. Supervision of fluoroscopy. No radiologist present. 5. Urological services for supervision and interpretation of ureteroscopy. ANESTHESIA: General. COMPLICATIONS: None. CLINICAL SUMMARY: Kasi Conway is a 77-year-old man who underwent multiple stone procedures on his large volume left nephrolithiasis. He has a stent in place, and is brought for hopefully rendering him stent-free and stone-free. He is aware of the risks of bleeding, infection, injury to adjacent structures, need for additional procedures, and elected to proceed. OPERATIVE PROCEDURE IN DETAIL: Informed consent was verified. Kasi Conway was properly identified and taken to the operating room and placed on the cystoscopy table in the supine position. Anesthesia was uneventfully begun. The patient was then carefully and gently repositioned in the dorsal lithotomy position with all pressure points well padded. His genitalia were prepared in the usual sterile fashion. The 22.5-Tamazight cystoscope sheath with the visual obturator in place was atraumatically inserted in the patient's urethra. It was guided down the unremarkable urethra through prostate bed and was significant for trilobar prostatic hypertrophy with kissing lateral lobes and visually obstructing ball valving median lobe. We entered the patient's bladder where panendoscopy revealed some fine sand. Stent was noted to be emerging from the left ureteral orifice and was minimally encrusted. A guidewire was then placed alongside the stent and guided to the level of the patient's kidney. The stent was then grasped, completely removed and discarded. A semi-rigid ureteroscope was then inserted alongside the guidewire into the left ureter. The distal ureter did not exhibit stones. Contrast was injected. A secondary guidewire was utilized. Flexible ureteroscope was then brought up over the guidewire and guided to the level of the patient's kidney. In the kidney, we identified numerous and innumerable stones. We grasped the stone with the Nitinol tipless basket and extracted them atraumatically. We then utilized a double lumen ureteral catheter to replace the secondary guidewire, and repeated that process enumerable times. At the end of the procedure, all significantly size stone burden was removed. Only very fine sand remained. The sand that was too small to grasp with a Nitinol tipless basket. We irrigated throughout every laure of the patient's kidney to insure that all the sand was dislodged. We then carefully re-examined the ureter as we exited to ensure that the ureter was free of stones, which it was. Interpretation of retrograde ureteropyelography. Contrast was instilled in a retrograde fashion via the ureteroscope. There was chronic appearing fullness of the collecting system on the left hand side. The ureter was unremarkable. Unobstructed drainage was observed fluoroscopically. The patient's bladder was drained. Cystoscope was withdrawn. A belladonna and opium suppository was placed revealing a much larger than 40 g prostate that was smooth, nonfluctuant without any nodules. The patient was then uneventfully reversed from anesthesia and taken to the recovery room in stable condition. There were no complications to the procedure well. The patient tolerated the procedure well. We will plan on following the patient up in the office for uroflowmetry and bladder ultrasonography to objectively assess his voiding. We will also plan on following him up on an indefinite long-term basis for his complicated kidney stone history. Job#: [id number]
== END | disposition home or self-care (01) ==
LOC: OR 08:29
PROVIDERS: ATTEND Urology
DX: N20.0 Calculus of kidney (principal); Z46.6 Encounter for fitting and adjustment of urinary device; N40.1 Benign prostatic hyperplasia with lower urinary tract symptoms; N13.8 Other obstructive and reflux uropathy; I10 Essential (primary) hypertension; E11.9 Type 2 diabetes mellitus without complications; K44.9 Diaphragmatic hernia without obstruction or gangrene; Z88.3 Allergy status to other anti-infective agents; Z01.812 Encounter for preprocedural laboratory examination; Z79.4 Long term (current) use of insulin
CPT/HCPCS: 36415 ×2; 52352; 74420; 80048; 82948; 85025; 88300; C1766; J0696; J1100; J2001; J2405; Q9967; 74018